=== PATIENT | female | born 1955 | race Caucasian/White ===

== ENCOUNTER 2022-12-08 07:26 | Day surgery (SDC) | payer OTHER, BC ==
[2022-12-06 11:39] VITALS: BMI 28.6
[2022-12-08 07:46] VITALS: RESP 18
[2022-12-08] MEDS ORDERED: GLYCOPYRROLATE 0.2 MG/1 ML VIAL ONE (08:09)
[2022-12-08 08:47] VITALS: PULSE 53; TEMP 97
[2022-12-08 09:15] VITALS: BP 121/78
== END 2022-12-08 09:16 | disposition home or self-care (01) ==
LOC: FASU-ENDO 07:26
PROVIDERS: ATTEND Internal Medicine Gastroenterology
PROC: 0DJD8ZZ Inspection of Lower Intestinal Tract, Via Natural or Artificial Opening Endoscopic (ICD-10-PCS; principal; 2022-12-08 08:20)
DX: Z12.11 Encounter for screening for malignant neoplasm of colon (principal); K57.30 Diverticulosis of large intestine without perforation or abscess without bleeding